=== PATIENT | female | born 1985 | race Two or more races ===

== ENCOUNTER 2016-12-21 19:09 | Emergency (ER) | payer SELFPAY ==
[2016-12-21 19:58] VITALS: BP 140/88
[2016-12-21] MEDS ORDERED: ONDANSETRON 4 MG TAB.RAPDIS PO ONE (20:07)
[2016-12-21] MEDS ORDERED: PROMETHAZINE HCL 25 MG TABLET PO ONE (20:07)
--- NOTE | 2016-12-21 20:15 | ER Document Report ---
ED Medical Screen (RME) - General Chief Complaint: Chest Pain Stated Complaint: CHEST PAIN,STOMACH PAINS Notes: Patient is 29-30 weeks , G6, P2, A3 who is complaining of a cough with runny nose for the past week. She is getting up some phlegm. Has some pains in her anterior chest which she thinks is from coughing. Began having vomiting and diarrhea a couple of days ago and says she's vomited 5 or 6 times all total. Has not noted any fever. She's now developed some pain in the flank regions from the coughing since last night. Patient is on heparin injections twice a day for some clotting disorder. She recently moved here from [facility] and does not have a local [employer] yet. TRAVEL OUTSIDE OF THE [place] IN LAST 30 DAYS: No - Related Data Allergies/Adverse Reactions: cefaclor [From Ceclor] Allergy (Verified 01/12/13 09:34) codeine phosphate [From Robitussin A-C] Allergy (Verified 01/12/13 09:34) guaifenesin [From Robitussin A-C] Allergy (Verified 01/12/13 09:34) Past Medical History - Social History Family history: Arthritis, CVA, DM, Hypertension, Malignancy Pulmonary Medical History: Denies: Hx Tuberculosis Renal/ Medical History: Reports: Hx Ectopic . Denies: Hx Peritoneal Dialysis Past Surgical History: Reports: Hx Gynecologic Surgery - D+C, Hx Tonsillectomy - Immunizations Immunizations up to date: Yes Hx Diphtheria, Pertussis, Tetanus Vaccination: Yes Physical Exam - Vital signs Vitals: Temp Pulse Resp BP Pulse Ox 98.6 F 98 19 140/88 H 99 12/21/16 19:54 12/21/16 19:54 12/21/16 19:54 12/21/16 19:54 12/21/16 19:54 Course - Vital Signs Vital signs: Temp Pulse Resp BP Pulse Ox 98.6 F 98 19 140/88 H 99 12/21/16 19:54 12/21/16 19:54 12/21/16 19:54 12/21/16 19:54 12/21/16 19:54
[2016-12-21 20:32] LABS: APPEARANCE,URINE CLEAR; BILIRUBIN,URINE NEGATIVE (NEGATIVE); GLUCOSE, URINE NEGATIVE (NEGATIVE); KETONES,URINE NEGATIVE (NEGATIVE); LEUKOCYTE ESTERASE,URINE NEGATIVE (NEGATIVE); NITRITE,URINE NEGATIVE (NEGATIVE); PROTEIN,URINE NEGATIVE (NEGATIVE); URINE SPECIFIC GRAVITY 1.024; UROBILINOGEN,URINE NEGATIVE mg/dL (<2.0)
--- NOTE | 2016-12-22 08:17 | EKG REPORT ---
SEVERITY:- NORMAL ECG - SINUS RHYTHM : Confirmed by: Tima Chan MD 22-Dec-2016 08:17:18
== END 2016-12-22 04:42 | disposition left against medical advice (07) ==
LOC: ER 19:09
DX: Z53.9 Procedure and treatment not carried out, unspecified reason (principal); R07.9 Chest pain, unspecified; R10.9 Unspecified abdominal pain; R11.10 Vomiting, unspecified; R19.7 Diarrhea, unspecified
CPT/HCPCS: 93005; 99281; 81001; 93010; S0119

== ENCOUNTER 2016-12-30 05:37 | Outpatient (CLI) | payer MEDICAID ==
[2016-12-30 06:26] LABS: AMNISURE (ROM) POSITIVE (NEGATIVE)
[2016-12-30 06:27] LABS: APPEARANCE,URINE SLIGHTLY-CLOUDY; BILIRUBIN,URINE NEGATIVE (NEGATIVE); GLUCOSE, URINE NEGATIVE (NEGATIVE); KETONES,URINE NEGATIVE (NEGATIVE); LEUKOCYTE ESTERASE,URINE NEGATIVE (NEGATIVE); NITRITE,URINE NEGATIVE (NEGATIVE); PROTEIN,URINE NEGATIVE (NEGATIVE); URINE SPECIFIC GRAVITY 1.015; UROBILINOGEN,URINE NEGATIVE mg/dL (<2.0)
[2016-12-30] MEDS ORDERED: RINGERS SOLUTION,LACTATED 1,000 ML IV PRN (06:34)
[2016-12-30] MEDS ORDERED: PENICILLIN G-K 5 MILLION UNIT VIAL IV ONE (06:34)
[2016-12-30] MEDS ORDERED: PENICILLIN G-K 5 MILLION UNIT VIAL ONE (06:38)
[2016-12-30 06:39] LABS: URINE BARBITURATES SCREEN NEGATIVE; URINE METHADONE SCREEN NEGATIVE; URINE OPIATES LOW NEGATIVE; URINE PHENCYCLIDINE SCREEN NEGATIVE
[2016-12-30 07:10] LABS: ABSOLUTE EOSINOPHILS # (AUTO) 0.6 10^3/uL (0.0-0.6); ABSOLUTE LYMPHOCYTES (AUTO) 1.4 10^3/uL (0.5-4.7); ABSOLUTE MONOCYTES (AUTO) 0.9 10^3/uL (0.1-1.4); ABSOLUTE NEUT (AUTO) 10.4 10^3/uL (1.7-8.2); BASOPHILS % (AUTO) 0.3 % (0-2); EOSINOPHILS % (AUTO) 4.3 % (0-6); HEMATOCRIT 36.1 % (36.0-47.0); HEMOGLOBIN 12.8 g/dL (12.0-15.5); HGB HCT DIFFERENCE 2.3; LYMPHOCYTES % (AUTO) 10.5 % (13-45); MEAN CORPUSCULAR HEMOGLOBIN 30.8 pg (27.0-33.4); MEAN CORPUSCULAR HGB CONC 35.4 g/dL (32.0-36.0); MEAN CORPUSCULAR VOLUME 87 fl (80-97); MONOCYTES % (AUTO) 6.6 % (3-13); RED BLOOD COUNT 4.15 10^6/uL (3.72-5.28); RED CELL DISTRIBUTION WIDTH 13.3 % (11.5-14.0); SEGMENTED NEUTROPHILS % (AUTO) 78.3 % (42-78); WHITE BLOOD COUNT 13.2 10^3/uL (4.0-10.5)
[2016-12-30 07:48] LABS: RUBELLA IGG ANTIBODY 9.85 IU/mL
[2016-12-30 08:01] LABS: ADD HIVPANEL? NO; HIV (1 AND 2) ANTIBODY NEGATIVE (NEGATIVE)
--- NOTE | 2016-12-30 08:01 | L&D Flow Sheet ---
LD Flowsheet Datetime Report Generated by CPN: 12/30/2016 08:00 Datetime: 12/30/2016 07:25 Communication Comments: Dr. Weller @ bedside discussing POC with patient and decision to transfer patient to a more acute facility. Pt in agreement with POC. (Carina Ruiz, RN) Datetime: 12/30/2016 07:15 Communication: Report Given to @ RLee RN; care relinquished at this time. (Flaquita Powell RN) Datetime: 12/30/2016 07:04 NBP Sys/Josy/Mean (mmHg): 122 (QS system process) : 77 (QS system process) : 94 (QS system process) Pulse: 85 (QS system process) Datetime: 12/30/2016 07:00 Contraction Comments: No contractions noted on strip ([facility], RN) Monitor Mode: External US ([facility], RN) FHR Baseline Rate : 155 [facility] Variability: Moderate 6-25 bpm (Flaquita Field, RN) Accelerations: 10X10 (Flaquita Field, RN) Decelerations: None (Flaquita Field, RN) Datetime: 12/30/2016 06:54 Antibiotics: Penicillin IV (Units) @ 5,000,000 (Flaquita Field, RN) Datetime: 12/30/2016 06:39 IV/Blood Work: IV Started; IV Bolus Started (Carolee Joshua, RN) Patient Care Comments: 18 g started in L hand with first attempt. (Carolee Tres, RN) Datetime: 12/30/2016 06:34 NBP Sys/Josy/Mean (mmHg): 129 (QS system process) : 86 (QS system process) : 104 (QS system process) Pulse: 94 (QS system process) Datetime: 12/30/2016 06:30 Monitor Mode: External US (Carolee Joshua, RN) FHR Baseline Rate : 155 (Carolee Tres, RN) FHR Baseline Changes: No Baseline Change (Carolee Tres, RN) Variability: Minimal - Undetectable to <=5 bpm (Carolee Tres, RN) Accelerations: 10X10 (Carolee Tres, RN) Decelerations: None (Carolee Tres, RN) Comments: APA (Carolee Johnsonoon, RN) Datetime: 12/30/2016 06:14 Pain Presence: None/Denies (Flaquita Powell RN) Pain Type: N/A (Flaquita Powell RN) Vaginal Bleeding: None (Flaquita Powell RN) Level of Consciousness: Fully Conscious (Flaquita Powell RN) DTR's/Clonus: DTRs 1+; No Clonus (Flaquita Powell RN) Headache: Denies (Flaquita Powell RN) Breath Sounds, Left: Clear and Equal (Flaquita Powell RN) Breath Sounds, Right: Clear and Equal (Flaquita Powell RN) Nausea/Vomiting: Denies (Flaquita Powell RN) RUQ Epigastric Pain: Denies (Flaquita Powell RN) Instructional Method: Verbal; Patient Instructed; Family/Support Person Instructed; Verbalized Understanding (Flaquita Powell RN) Plan of Care: Plan of Care Discussed (Flaquita Powell RN) Unit Routine: [place] to Room; Call [place]; Bed; Visiting Policy; Waiting Areas; Infant Security; Photography; Unit Personnel; Handwashing; Monitoring; Safety/Fall Risk Prevention; Bathroom Privileges (Flaquita Powell RN)
[2016-12-30] MEDS ORDERED: BETAMET ACET/BETAMET NA INJ 6 MG/1 ML ONE ×2 (08:29→08:54)
[2016-12-30] MEDS ORDERED: AZITHROMYCIN INJ 500 MG VIAL IV ONE (08:29)
--- NOTE | 2016-12-30 08:38 | TRANSFER SUMMARY E ---
Transfer Summary NAME: JON WRIGHT : 1985 AGE: 31Y ADMITTED: 12/30/2016 TRANSFERRED: 12/30/2016 HISTORY: The patient is a 31-year-old female, 6, para 2 who has complicated OB history including miscarriage as well as 2 demise and 1 living child by , 1 living child by vaginal . She is at 31 weeks 1 day presenting to labor and delivery with rupture of membranes with a positive AmniSure. She has had a high-risk and has been seen in [place], [place], but has just recently moved here. Past medical history is remarkable for homocysteine gene mutation. Prior to moving to [place] was on heparin 10,000 units b.i.d. subcutaneous. She denies any history of heart or lung problems. She does report chorioamnionitis with previous . PHYSICAL EXAMINATION: VITAL SIGNS: Today presenting, she is afebrile. Her vital signs are stable. GENERAL: She is alert, oriented and appropriate. LUNGS: Lungs are clear. HEART: Regular rate and rhythm. ABDOMEN: Gravid approximately 31 weeks. PELVIC: Per nursing exam, she has leaking fluid. LABORATORY: As far as lab reports, we have none back at this time. ASSESSMENT: 1. Rupture of membranes at 31 weeks. 2. Homocysteine mutation. PLAN: To begin IV penicillin. She has had a group-B strep culture done. Since she is less than 32 weeks, we will plan for transfer to a tertiary care center. We will also start some Lovenox to prevent blood clot. DICTATING PHYSICIAN: MICHAEL MIR M.D. [id number] Y#: [id number] ID: [id number] JOB#: [id number] ACCT: [id number] cc:MICHAEL MIR M.D. >
[2016-12-30 08:58] LABS: CHLAM PCR NOT DETECTED (NOT DETECT)
[2016-12-31 07:43] LABS: HEPATITIS C VIRUS AB <0.1 s/co ratio (0.0-0.9)
== END 2016-12-30 10:51 | disposition short-term general hospital (02) ==
LOC: LC 05:37
PROVIDERS: ATTEND Obstetrics & Gynecology
PROC: 4A1HXCZ Monitoring of Products of Conception, Cardiac Rate, External Approach (ICD-10-PCS; principal; 2016-12-30)
DX: O42.919 Preterm premature rupture of membranes, unspecified as to length of time between rupture and onset of labor, unspecified trimester (principal); O09.293 Supervision of pregnancy with other poor reproductive or obstetric history, third trimester; Z3A.31 31 weeks gestation of pregnancy
CPT/HCPCS: 59899; 96372; 84112; 86900; 86901; 36415; 86850; 85025; 86762; 86592; 81001; 87081; 87340; 86701; 80307; 87491; 87591; 86803; 86804; 76805; J2540; J0702; J0456

== ENCOUNTER 2017-01-06 16:42 | Emergency (ER) | payer MEDICAID ==
[2017-01-06 16:53] VITALS: BP 138/89
--- NOTE | 2017-01-06 17:50 | ER Document Report ---
ED Medical Screen (RME) - General Chief Complaint: Post Problem Stated Complaint: SWELLING AFTER CSECTION Mode of Arrival: Ambulatory Information source: Patient Notes: Patient is a 31-year-old female who is post day #4 status post repeat low transverse . She states that she had at 31 weeks secondary to labor. She was discharged home on postop day 2. Yesterday she noted some swelling just below her incision site. Today she called her OB at [facility] and was recommended to come for evaluation here in the ER to make sure she did not have an infection. Patient states that she had a previous seroma/blood clot in that area after her first . Patient denies any fevers or chills. She is not having significant pain, her symptoms have been well controlled with Motrin and the pain medicine that was prescribed to her. She is tolerating po. She is breast-feeding by pumping, as her infant is in the NICU in [facility]. No dysuria. She is having bowel movements. Currently she feels well and has no complaints other than the mild swelling. TRAVEL OUTSIDE OF THE [place] IN LAST 30 DAYS: No - Related Data Allergies/Adverse Reactions: cefaclor [From Ceclor] Allergy (Verified 12/30/16 06:59) codeine phosphate [From Robitussin A-C] Allergy (Verified 12/30/16 06:59) guaifenesin [From Robitussin A-C] Allergy (Verified 12/30/16 06:59) Past Medical History - Social History Family history: Arthritis, CVA, DM, Hypertension, Malignancy Pulmonary Medical History: Denies: Hx Tuberculosis Renal/ Medical History: Reports: Hx Ectopic . Denies: Hx Peritoneal Dialysis Past Surgical History: Reports: Hx Gynecologic Surgery - D+C, Hx Tonsillectomy - Immunizations Immunizations up to date: Yes Hx Diphtheria, Pertussis, Tetanus Vaccination: Yes Physical Exam - Vital signs Vitals: Temp Pulse Resp BP Pulse Ox 98.5 F 87 18 138/89 H 99 01/06/17 16:50 01/06/17 16:50 01/06/17 16:50 01/06/17 16:50 01/06/17 16:50 - General General appearance: Appears well In distress: None - Respiratory Respiratory status: No respiratory distress Breath sounds: Normal - Cardiovascular Rhythm: Regular Heart sounds: Normal auscultation, S1 appreciated, S2 appreciated - Abdominal Notes: Abdomen is soft, nondistended, very minimally inappropriately tender to palpation near the site. Bandage and Steri-Strips are intact with mild dried blood. There is mild edema noted just distal to the incision. No erythema or warmth or induration. No fluctuance. There is no purulent drainage from the incision. There is no tenderness to palpation. Bowel sounds are intact Course - Re-evaluation Re-evalutation: 01/06/17 17:48 Discussed with patient that at this time there is no clinical evidence for infection. She does have mild swelling but I see no evidence of cellulitis or abscess. She will follow up with her OB doctor in the next 24-48 hours. She will return to emergency Department for increased pain, increased swelling, any fevers or worsening symptoms or concerns. She is very comfortable with this plan. - Vital Signs Vital signs: Temp Pulse Resp BP Pulse Ox 98.5 F 87 18 138/89 H 99 01/06/17 16:50 01/06/17 16:50 01/06/17 16:50 01/06/17 16:50 01/06/17 16:50 Doctor's Discharge - Discharge Clinical Impression: Status post , Visit for wound check Condition: Stable Disposition: HOME, SELF-CARE Additional Instructions: I discussed please call your OB physician tomorrow to schedule follow-up in the next 24-48 hours. Continue her home medications as prescribed. Return to the ER for increased swelling, redness, fever, increased pain, or any worsening symptoms or concerns.
== END 2017-01-06 18:01 | disposition home or self-care (01) ==
LOC: ER 16:42
DX: O90.89 Other complications of the puerperium, not elsewhere classified (principal); R22.9 Localized swelling, mass and lump, unspecified
CPT/HCPCS: 99283